=== PATIENT | male | born 1945 | race Caucasian/White ===

== ENCOUNTER 2017-03-02 05:52 | Day surgery (SDC) | payer MEDICARE, BC ==
[~2017-03-02] VITALS: Ht 170.2 cm; Wt 150.1 kg
[~2017-03-02 05:52] MED LIST: ALLO300T PO; AMLO5TAB2 PO; ASPI-515 PO; BENA1TAB10 PO; BISA5TAB5 PO; DESL5TAB6 PO; DOCU100T3 PO; ESOM40CA PO; INSU200I4 SC; METF10002 PO; METF500T4 PO; MULT-658 PO; MULTIVITAMIN PO; OLOP30.5 NS; OXYGEN NAS; PATANASE PO; ROSU20TA PO; SIMV20TA3 PO; SITA100T PO; [UNRECOGNIZED DRUG - OTHER] PO; [UNRECOGNIZED DRUG - OTHER] PO
[2017-03-02 06:56] VITALS: BP 133/82
[2017-03-02] MEDS ORDERED: LACTATED RINGERS 1,000 ML IV SCH (07:18)
[2017-03-02] MEDS ORDERED: MIDAZOLAM 1 MG/ML, 2ML ONE (07:20)
[2017-03-02] MEDS ORDERED: METOPROLOL 1 MG/ML, 5ML IV PRN (08:30)
[2017-03-02] MEDS ORDERED: hydrALAzine 20 MG/ML, 1ML IV PRN (08:30)
[2017-03-02] MEDS ORDERED: HYDROcodone/APAP 7.5-325MG/15ML UDC PO PRN (08:30)
[2017-03-02] MEDS ORDERED: FENTANYL PF 100 MCG/2ML IV PRN (08:30)
[2017-03-02] MEDS ORDERED: OXYcodone 5 MG/5 ML ORAL.SOL UDC PO PRN (08:30)
[2017-03-02] MEDS ORDERED: EPHEDRINE 50 MG/ML, 1ML IVPush PRN (08:30)
[2017-03-02] MEDS ORDERED: PROMETHAZINE 25 MG/ML, 1ML IV PRN (08:30)
[2017-03-02] MEDS ORDERED: LABETALOL 5MG/ML, 20ML IV PRN (08:30)
[2017-03-02] MEDS ORDERED: ALBUTEROL SULFATE 2.5 MG/3 ML NPPB PRN (08:30)
[2017-03-02] MEDS ORDERED: ACETAMINOPHEN 325 MG TABLET PO PRN (08:30)
[2017-03-02] MEDS ORDERED: ONDANSETRON 2MG/ML, 2ML IVPush PRN (08:30)
[2017-03-02] MEDS ORDERED: PROPOFOL 10 MG/ML, 20ML ONE (16:47)
[2017-03-02] MEDS ORDERED: ONDANSETRON 2MG/ML, 2ML ONE (16:47)
== END 2017-03-02 10:00 ==
LOC: OUT 05:52
PROVIDERS: ATTEND Internal Medicine Geriatric Medicine
DX: K22.70 Barrett's esophagus without dysplasia (principal); K31.7 Polyp of stomach and duodenum; E11.9 Type 2 diabetes mellitus without complications; J44.9 Chronic obstructive pulmonary disease, unspecified; Z88.6 Allergy status to analgesic agent; Z91.040 Latex allergy status
CPT/HCPCS: 43239; 82962; 88305; J2250; J2405; J2704; J7120

== ENCOUNTER 2018-04-12 07:46 | Day surgery (SDC) | payer MEDICARE, BC ==
[~2018-04-12] VITALS: Ht 170.2 cm; Wt 151.1 kg
[~2018-04-12 07:46] MED LIST changes: -AMLO5TAB2 PO; +AMLO5TAB7 PO; +METF500T17 PO; -METF500T4 PO
[2018-04-12 08:18] VITALS: BP 148/74
[2018-04-12] MEDS ORDERED: LACTATED RINGERS 1,000 ML IV SCH (08:21)
[2018-04-12] MEDS ORDERED: DIPHENHYDRAMINE 50 MG/ML, 1ML IVPush PRN (08:30)
[2018-04-12] MEDS ORDERED: hydrALAzine 20 MG/ML, 1ML IV PRN (08:30)
[2018-04-12] MEDS ORDERED: LIDOCAINE-MPF 1%, 2ML INFIL ONE (08:30)
[2018-04-12] MEDS ORDERED: MEPERIDINE/PF 25MG/0.5ML IVPush PRN (08:30)
[2018-04-12] MEDS ORDERED: LABETALOL 5MG/ML, 20ML IV PRN (08:30)
[2018-04-12] MEDS ORDERED: FENTANYL PF 100 MCG/2ML IV PRN (08:30)
[2018-04-12] MEDS ORDERED: ALBUTEROL/IPRATROPIUM 2.5MG/0.5MG, 3 ML NPPB PRN (08:30)
[2018-04-12] MEDS ORDERED: DEXTROSE 50%, 50ML VIAL IVPush STA (10:17)
[2018-04-12] MEDS ORDERED: DEXTROSE 50%, 50ML SYRINGE ONE (10:20)
[2018-04-12] MEDS ORDERED: DEXTROSE 50%, 50ML SYRINGE IVPush STA (10:22)
[2018-04-12] MEDS ORDERED: PROPOFOL 10 MG/ML, 20ML ONE (10:58)
== END 2018-04-12 13:00 | disposition home or self-care (01) ==
LOC: OUT 07:46
PROVIDERS: ATTEND Internal Medicine Geriatric Medicine
DX: K22.70 Barrett's esophagus without dysplasia (principal); K21.9 Gastro-esophageal reflux disease without esophagitis; I10 Essential (primary) hypertension; G47.33 Obstructive sleep apnea (adult) (pediatric); E11.9 Type 2 diabetes mellitus without complications; Z99.81 Dependence on supplemental oxygen; Z88.6 Allergy status to analgesic agent; Z88.8 Allergy status to other drugs, medicaments and biological substances; Z79.899 Other long term (current) drug therapy
CPT/HCPCS: 43239; 82962; 88305; J2704; J3490; J7120

== ENCOUNTER → 2018-10-27 | Outpatient (CLI) | payer MEDICARE, BC ==
[~2018-10-27] MED LIST changes: +AMLO-150 PO; -AMLO5TAB7 PO; +DOCU100C33 PO; +IRON1TAB37 PO; -ROSU20TA PO; +ROSU20TA2 PO
== END | disposition home or self-care (01) ==
LOC: STAR 11:08
PROVIDERS: ATTEND Internal Medicine Geriatric Medicine
DX: Z01.818 Encounter for other preprocedural examination (principal); D64.9 Anemia, unspecified; Z88.5 Allergy status to narcotic agent; Z91.040 Latex allergy status
CPT/HCPCS: 93005

== ENCOUNTER 2018-11-01 05:21 | Day surgery (SDC) | payer MEDICARE, BC ==
[~2018-11-01] VITALS: Ht 170.2 cm; Wt 151.8 kg
[2018-11-01] MEDS ORDERED: LACTATED RINGERS 1,000 ML IV SCH (06:11)
[2018-11-01 06:14] VITALS: BP 116/81
[2018-11-01] MEDS ORDERED: OXYcodone 5 MG/5 ML ORAL.SOL UDC PO PRN (07:30)
[2018-11-01] MEDS ORDERED: hydrALAzine 20 MG/ML, 1ML IV PRN (07:30)
[2018-11-01] MEDS ORDERED: ALBUTEROL/IPRATROPIUM 2.5MG/0.5MG, 3 ML NPPB PRN (07:30)
[2018-11-01] MEDS ORDERED: MIDAZOLAM 1 MG/ML, 2ML IV PRN (07:30)
[2018-11-01] MEDS ORDERED: ONDANSETRON 2MG/ML, 2ML IV PRN (07:30)
[2018-11-01] MEDS ORDERED: ACETAMINOPHEN 325 MG TABLET PO PRN (07:30)
[2018-11-01] MEDS ORDERED: FENTANYL PF 100 MCG/2ML IV PRN (07:30)
[2018-11-01] MEDS ORDERED: PROPOFOL 10 MG/ML, 20ML ONE (07:48)
[2018-11-01] MEDS ORDERED: LIDOCAINE 2% 100MG/5ML SYRINGE ONE (07:48)
== END 2018-11-01 10:20 | disposition home or self-care (01) ==
LOC: OUT 05:21
PROVIDERS: ATTEND Internal Medicine Geriatric Medicine
DX: D12.2 Benign neoplasm of ascending colon (principal); K31.7 Polyp of stomach and duodenum; K57.30 Diverticulosis of large intestine without perforation or abscess without bleeding; E11.9 Type 2 diabetes mellitus without complications; Z98.890 Other specified postprocedural states; Z88.8 Allergy status to other drugs, medicaments and biological substances; Z88.6 Allergy status to analgesic agent; Z91.040 Latex allergy status; Z79.84 Long term (current) use of oral hypoglycemic drugs
CPT/HCPCS: 43239; 43251; 45380; 82962; 88305; J2704; J7120

== ENCOUNTER 2019-02-24 10:03 | Outpatient (CLI) | payer MEDICARE, BC | END 2019-02-24 23:59 | disposition home or self-care (01) | LOC: CVU 10:03 → EDSTATUS 11:00 → CVU 23:59 | PROVIDERS: ATTEND Registered Nurse | DX: I08.0 Rheumatic disorders of both mitral and aortic valves (principal); I11.9 Hypertensive heart disease without heart failure; E78.5 Hyperlipidemia, unspecified; E11.9 Type 2 diabetes mellitus without complications | CPT/HCPCS: 0399T; 93306 ==